=== PATIENT | female | born 1965 | race Native Hawaiian/Other Pacific Islander ===

== ENCOUNTER 2017-01-05 08:02 | Outpatient (CLI) | payer BC ==
[~2017-01-05 08:02] MED LIST: AMLO2.5T PO; ASA LO-DOSE81 MG PO; CLONIDINE0.2 MG PO; HYDRALAZINE50 MG PO; LISI20TA24 PO; METO50TA27 PO; SPIR25TA66 PO
== END 2017-01-05 18:59 | disposition home or self-care (01) ==
LOC: RAD 08:02
DX: M50.222 Other cervical disc displacement at C5-C6 level (principal); M50.223 Other cervical disc displacement at C6-C7 level

== ENCOUNTER 2017-03-18 10:22 | Outpatient (CLI) | payer BC | END 2017-03-18 11:30 | disposition home or self-care (01) | LOC: RAD 10:22 | DX: M50.222 Other cervical disc displacement at C5-C6 level (principal); M50.223 Other cervical disc displacement at C6-C7 level ==

== ENCOUNTER 2017-05-03 16:55 | Outpatient (CLI) | payer OTHER, BC | END 2017-05-03 16:59 | disposition short-term general hospital (02) | LOC: AMB 16:55 | DX: M54.2 Cervicalgia (principal); V49.88XA Car occupant (driver) (passenger) injured in other specified transport accidents, initial encounter; Y92.488 Other paved roadways as the place of occurrence of the external cause | CPT/HCPCS: A0425; A0429 ==

== ENCOUNTER 2017-05-03 16:59 | Emergency (ER) | payer OTHER, BC ==
[~2017-05-03] VITALS: Ht 172.7 cm; Wt 127.0 kg
[2017-05-03 17:00] VITALS: TEMP 98.9
[2017-05-03 18:20] VITALS: BP 148/82
== END 2017-05-03 18:28 | disposition home or self-care (01) ==
LOC: ED 16:59
DX: M54.2 Cervicalgia (principal); V53.6XXA Passenger in pick-up truck or van injured in collision with car, pick-up truck or van in traffic accident, initial encounter
CPT/HCPCS: 96372; 99283; J1885

== ENCOUNTER 2017-06-08 14:44 | Outpatient (CLI) | payer BC | END 2017-06-08 15:45 | disposition home or self-care (01) | LOC: RAD 14:44 → LABW 14:44 → RAD 15:45 | DX: M50.31 Other cervical disc degeneration, high cervical region (principal); M50.321 Other cervical disc degeneration at C4-C5 level; M79.671 Pain in right foot ==

== ENCOUNTER 2018-12-26 12:58 | Outpatient (CLI) | payer OTHER | END 2018-12-26 23:05 | disposition home or self-care (01) | LOC: MAMMO 12:58 | DX: Z12.31 Encounter for screening mammogram for malignant neoplasm of breast (principal) ==

== ENCOUNTER 2019-03-27 10:29 | Outpatient (CLI) | payer OTHER ==
[2019-03-27 10:59] LABS: PLATELET COUNT 241 K/uL (152-353)
[2019-03-27 11:07] LABS: POTASSIUM 3.7 mmol/L (3.6-5.2)
== END 2019-03-27 23:17 | disposition home or self-care (01) ==
LOC: LABW 10:29
PROVIDERS: Internal Medicine
DX: I12.9 Hypertensive chronic kidney disease with stage 1 through stage 4 chronic kidney disease, or unspecified chronic kidney disease (principal); N18.4 Chronic kidney disease, stage 4 (severe); E11.9 Type 2 diabetes mellitus without complications
CPT/HCPCS: 36415; 80053; 81000; 82043; 82306; 82330; 82570; 83036; 83735; 83970; 84100; 84155; 84550; 85027

== ENCOUNTER 2019-05-22 08:32 | Outpatient (CLI) | payer OTHER ==
[2019-05-22 08:49] LABS: PLATELET COUNT 226 K/uL (152-353)
[2019-05-22 09:26] LABS: POTASSIUM 3.5 mmol/L (3.6-5.2)
== END 2019-05-22 20:12 | disposition home or self-care (01) ==
LOC: LABW 08:32
PROVIDERS: Internal Medicine
DX: N18.4 Chronic kidney disease, stage 4 (severe) (principal)
CPT/HCPCS: 36415; 80053; 81000; 82330; 82570; 83735; 84100; 84155; 85027

== ENCOUNTER 2019-09-02 08:48 | Outpatient (CLI) | payer OTHER ==
[2019-09-02 09:19] LABS: PLATELET COUNT 224 K/uL (152-353)
[2019-09-02 09:25] LABS: POTASSIUM 3.6 mmol/L (3.6-5.2)
== END 2019-09-02 22:13 | disposition home or self-care (01) ==
LOC: LABW 08:48
PROVIDERS: Internal Medicine
DX: N18.4 Chronic kidney disease, stage 4 (severe) (principal)
CPT/HCPCS: 36415; 80053; 81000; 82330; 82570; 83735; 83970; 84100; 84155; 85027

== ENCOUNTER 2019-10-23 08:37 | Outpatient (CLI) | payer OTHER ==
[2019-10-23 09:06] LABS: POTASSIUM 3.8 mmol/L (3.6-5.2)
[2019-10-23 10:48] LABS: PLATELET COUNT 230 K/uL (152-353)
== END 2019-10-23 22:25 | disposition home or self-care (01) ==
LOC: LABW 08:37
PROVIDERS: Internal Medicine
DX: N18.4 Chronic kidney disease, stage 4 (severe) (principal); R82.998 Other abnormal findings in urine
CPT/HCPCS: 36415; 80053; 81000; 82330; 82570; 83735; 83970; 84100; 84155; 85027; 87086; 87088

== ENCOUNTER 2020-01-23 09:24 | Outpatient (CLI) | payer OTHER ==
[2020-01-23 10:22] LABS: PLATELET COUNT 251 K/uL (152-353)
== END 2020-01-23 20:53 | disposition home or self-care (01) ==
LOC: LABW 09:24
PROVIDERS: Internal Medicine
DX: E11.22 Type 2 diabetes mellitus with diabetic chronic kidney disease (principal); N18.4 Chronic kidney disease, stage 4 (severe); R82.998 Other abnormal findings in urine
CPT/HCPCS: 36415; 80053; 81000; 82330; 82570; 83036; 83735; 83970; 84100; 84155; 85027; 87086; 87088

== ENCOUNTER 2020-04-27 11:16 | Outpatient (CLI) | payer OTHER ==
[2020-04-27 11:45] LABS: POTASSIUM 3.6 mmol/L (3.6-5.2)
[2020-04-27 11:57] LABS: PLATELET COUNT 215 K/uL (152-353)
== END 2020-04-27 19:54 | disposition home or self-care (01) ==
LOC: LABW 11:16
PROVIDERS: Nurse Practitioner
DX: E11.22 Type 2 diabetes mellitus with diabetic chronic kidney disease (principal); N18.4 Chronic kidney disease, stage 4 (severe)
CPT/HCPCS: 80053; 81000; 82330; 82570; 83036; 83735; 83970; 84100; 84155; 85027; 87086; 87088

== ENCOUNTER 2020-07-01 22:20 | Emergency (ER) | payer OTHER ==
[~2020-07-01] VITALS: Ht 175.3 cm; Wt 83.5 kg
[2020-07-01 23:18] LABS: PLATELET COUNT 145 K/uL (152-353)
[2020-07-01 23:30] LABS: POTASSIUM 3.7 mmol/L (3.6-5.2)
[2020-07-02 02:40] VITALS: BP 120/72; TEMP 98.3
== END 2020-07-02 02:40 | disposition home or self-care (01) ==
LOC: ED 22:20
PROVIDERS: Emergency Medicine
DX: I12.9 Hypertensive chronic kidney disease with stage 1 through stage 4 chronic kidney disease, or unspecified chronic kidney disease (principal); N18.9 Chronic kidney disease, unspecified; G93.0 Cerebral cysts; Z91.81 History of falling; W18.39XA Other fall on same level, initial encounter; Y92.89 Other specified places as the place of occurrence of the external cause
CPT/HCPCS: 36415; 80053; 85027; 93005; 96360; 99284

== ENCOUNTER 2020-07-06 10:47 | Emergency (ER) | payer OTHER ==
[~2020-07-06] VITALS: Ht 175.3 cm; Wt 83.5 kg
[2020-07-06 11:55] LABS: PLATELET COUNT 121 K/uL (152-353)
[2020-07-06 12:43] LABS: POTASSIUM 3.1 mmol/L (3.6-5.2)
[2020-07-06 17:25] VITALS: BP 126/79; TEMP 97.6
== END 2020-07-06 17:25 | disposition short-term general hospital (02) ==
LOC: ED 10:47
PROVIDERS: Emergency Medicine Emergency Medical Services
DX: J18.9 Pneumonia, unspecified organism (principal); U07.1 COVID-19; N17.9 Acute kidney failure, unspecified
CPT/HCPCS: 36415; 80053; 83605; 85027; 87040; 87635; 96365; 96375; 99284; J0696; J1100; U0003